=== PATIENT | male | born 1980 | race Caucasian/White ===

== ENCOUNTER 2019-12-31 18:19 | Emergency (ER) | payer OTHER ==
[~2019-12-31] VITALS: Ht 172.7 cm; Wt 86.2 kg
[~2019-12-31 18:19] MED LIST: ANTIDEPRESSANT; CIPRO500 MG PO; FLAGYL500 MG PO; FLEXERIL PO; HYDROCHLOROTH12.5 M1; HYDROCODONE-AP1 EAC6 PO; ONDANSETRON HCL4 M2 PO; TRAZODONE HCL100 MG PO; ZANTAC 150MG T150 MG PO
[2019-12-31] MEDS ORDERED: NORCO 5-325 TA1 EAC1 PO (20:05)
[2019-12-31] MEDS ORDERED: KEFLEX500 M1 PO (21:09)
[2019-12-31 21:15] VITALS: BP 131/82
== END 2019-12-31 21:15 | disposition home or self-care (01) ==
LOC: M.ERS 18:19
DX: S92.351A Displaced fracture of fifth metatarsal bone, right foot, initial encounter for closed fracture (principal); S92.191A Other fracture of right talus, initial encounter for closed fracture; M25.511 Pain in right shoulder; M25.512 Pain in left shoulder; J45.909 Unspecified asthma, uncomplicated; V29.49XA Motorcycle driver injured in collision with other motor vehicles in traffic accident, initial encounter; Y93.89 Activity, other specified; Y92.89 Other specified places as the place of occurrence of the external cause; Y99.8 Other external cause status